=== PATIENT | male | born 1935 | race Caucasian/White ===

== ENCOUNTER 2016-11-19 14:04 | Emergency (ER) | payer MEDICARE, OTHER ==
--- NOTE | ~2016-11-19 | CT71 ---
[facility] A Service of [facility] RADIOLOGY TEXT RESULTS PATIENT: EMILEE PADGETT LOCATION: SED : 37 UNIT #: [id number] AGE: [address]: aKr Ngo MD SEX: M ORDER DR: [id number] [place] [id number] MR#: [id number] Acc #: [id number] NAME: EMILEE PADGETT : 1935 SEX: M STUDY DATE/TIME: 11/19/2016 14:23 UNIT: SED ROOM: STUDY DESCRIPTION: CT Head Wo Contrast Attending Physician: Kar Ngo M.D. Ordering Physician: Kar Ngo M.D. MEDICAL IMAGING REPORT This report is preliminary unless electronic signature is present. EXAM Head CT, no contrast, 11/19/2016. PROCEDURE Axial unenhanced head CT. This CT exam was performed with one or more of the following radiation dose reduction techniques: automatic exposure control, adjustment of mA and/or kV according to patient size, and iterative reconstruction. COMPARISON STUDIES None CLINICAL HISTORY Intermittent headache for 10 days. FINDINGS There is mild age-appropriate white matter change and volume loss, but no hemorrhage or hydrocephalus or extraaxial fluid collection. The extracranial soft tissues are unremarkable. The skull base and calvaria are normal. IMPRESSION Benign normal age-related findings but otherwise normal negative unenhanced head CT. Dictated by... Herrera Carson M.D. [facility] A Service of [facility] RADIOLOGY TEXT RESULTS PATIENT: EMILEE PADGETT LOCATION: SED : 37 UNIT #: [id number] AGE: [address]: Kar Ngo MD SEX: M ORDER DR: THIS IS AN ELECTRONICALLY VERIFIED REPORT Herrera Carson M.D. at 11/22/2016 7:06 PM TEV/tmw TD: 11/19/2016 16:31 JOB #: [id number] MEDICAL IMAGING REPORT
[~2016-11-19 14:04] MED LIST: ALLEGRA PO; ASPIRIN PO; BENAZEPRIL PO; CENTRUM SILVER PO; MOBIC PO; OYSTER CALCIUM500 MG PO; SYNTHROID PO; VITAMIN C PO; ZANTAC PO; ZOCOR PO
== END 2016-11-19 15:29 | disposition home or self-care (01) ==
LOC: SED 14:04
DX: R51 Headache (principal); Z88.1 Allergy status to other antibiotic agents
CPT/HCPCS: 70450; 99284